=== PATIENT | male | born 1940 | race Caucasian/White ===

== ENCOUNTER 2018-03-12 11:16 | Emergency (ER) | payer OTHER ==
[2018-03-12 11:33] VITALS: TEMP 96
[2018-03-12 11:53] LABS: BASOPHILS % (AUTO) 0 % (0-3); EOSINOPHILS % (AUTO) 0 % (0-9); HEMATOCRIT 42 % (39-53); LYMPHOCYTES % (AUTO) 2.9 % (10-50); MEAN CORPUSCULAR HEMOGLOBIN 29.1 pg (27.0-32.0); MEAN CORPUSCULAR HGB CONC 30.9 gm/dl (32.0-36.0); MEAN CORPUSCULAR VOLUME 94 fL (80-100); MONOCYTES % (AUTO) 4.9 % (0-12)
[2018-03-12 12:38] LABS: ALBUMIN 2.7 gm/dl (3.4-5.0); BILIRUBIN,TOTAL 2.9 mg/dl (0.2-1.0); CALCIUM 9.6 mg/dl (8.5-10.1); CARBON DIOXIDE 22.1 mEq/L (21-32); CREATININE 1.62 mg/dl (0.80-1.30); TOTAL PROTEIN 7.2 gm/dl (6.4-8.2); TROP I 0.1 ng/ml (0.000-0.056)
[2018-03-12] MEDS ORDERED: SODIUM CHLORIDE 0.9% 1000ML 1,000 ML IV ONE (12:42)
[2018-03-12] MEDS ORDERED: ASPIRIN 81 MG CHEWABLE CTB ONE (12:48)
[2018-03-12 13:12] LABS: APPEARANCE,URINE Slightly Cloudy; BILIRUBIN,URINE 1+ (NEGATIVE); COLOR,URINE Dark yellow; GLUCOSE, URINE (UA) NEGATIVE (NEGATIVE); KETONES,URINE NEGATIVE (NEGATIVE); LEUKOCYTE ESTERASE ,URINE NEGATIVE (NEGATIVE); NITRATE,URINE NEGATIVE (NEGATIVE); OCCULT BLOOD,URINE 2+ (NEG-TRACE); PH,URINE 5.5; UROBILINOGEN,URINE 0.2 (0.2-1.0 EU)
[2018-03-12] MEDS ORDERED: LEVOFLOXACIN 25 MG/ML 500 MG in SODIUM CHLORIDE 0.9% 100 ML 100 ML IV ONE (13:23)
[2018-03-12 13:29] LABS: BACTERIA 2+ (< 1+); CRYSTALS NEGATIVE (0-3 AVE/HPF); EPITHELIAL CELLS 0-2 (SQUAMOUS); ICTOTEST,URINE NEGATIVE (NEGATIVE); RBC,URINE 0-3 (0-3AV/HPF); WBC,URINE 0-2 (0-5AV/HPF)
[2018-03-12 13:33] VITALS: O2SAT 98
[2018-03-12] MEDS ORDERED: LEVOFLOXACIN 25 MG/ML SOL IV ONE (13:35)
[2018-03-12 14:16] VITALS: BP 126/80; PULSE 80; RESP 20
[2018-03-13] MEDS ORDERED: ASPIRIN 325 MG TAB PO SCH (09:00)
== END 2018-03-12 14:05 | disposition short-term general hospital (02) | DRG 280 ==
LOC: ED 11:16
DX: I21.4 Non-ST elevation (NSTEMI) myocardial infarction (principal); J18.1 Lobar pneumonia, unspecified organism; R79.89 Other specified abnormal findings of blood chemistry; R91.8 Other nonspecific abnormal finding of lung field; Z87.891 Personal history of nicotine dependence; R39.9 Unspecified symptoms and signs involving the genitourinary system
CPT/HCPCS: 36415; 71046; 80053; 81001; 82550; 84484; 85025; 87088; 93005; 96365; 99070; 99285; J1956; A6232

== ENCOUNTER 2018-07-17 13:17 | Emergency (ER) | payer OTHER ==
[2018-07-17] MEDS ORDERED: PROPARACAINE HCL 0.5% OPHTHALMIC SOL OP ONE (13:31)
[2018-07-17] MEDS ORDERED: TETRACAINE HCL 0.5 % 1 DROP SOL ONE (13:32)
[2018-07-17] MEDS ORDERED: TETRACAINE HCL 1% SOL IJ ONE (13:38)
[2018-07-17 13:41] VITALS: TEMP 98.3
[2018-07-17 14:24] VITALS: BP 148/84; PULSE 87; RESP 16; O2SAT 96
[2018-07-17] MEDS ORDERED: SODIUM CHLORIDE 0.9% 250 ML SOL IV SCH (15:00)
== END 2018-07-17 15:08 | disposition home or self-care (01) | DRG 125 ==
LOC: ED 13:17
DX: T15.91XA Foreign body on external eye, part unspecified, right eye, initial encounter (principal)
CPT/HCPCS: 99282; 99283; A9270-GY